=== PATIENT | female | born 1965 | race Caucasian/White ===

== ENCOUNTER 2018-12-25 18:31 | Emergency (ER) | payer BC ==
[~2018-12-25] VITALS: Ht 182.9 cm; Wt 75.0 kg
[2018-12-25 18:42] VITALS: BP 112/62
[2018-12-25] MEDS ORDERED: TETanus/Pertussis (Acell)/Diphther VAC/PF (Tdap-Adult) 0.5ml syringe IM ONE (20:00)
[2018-12-25] MEDS ORDERED: LIDOcaine 1% 30ml preserv. free vial IJ ONE (20:00)
== END 2018-12-25 20:59 | disposition home or self-care (01) ==
LOC: ER 18:32
DX: S01.312A Laceration without foreign body of left ear, initial encounter (principal); W26.8XXA Contact with other sharp object(s), not elsewhere classified, initial encounter; Y93.89 Activity, other specified; Y92.89 Other specified places as the place of occurrence of the external cause; Y99.8 Other external cause status
CPT/HCPCS: 12011; 90471; 90715; 99283